=== PATIENT | male | born 1975 | race Caucasian/White ===

== ENCOUNTER 2019-03-31 09:12 | Outpatient (CLI) | payer OTHER ==
--- NOTE | 2019-03-31 11:15 | CT ---
CT FACIAL BONES: HISTORY: Patient with right eye pain. Evaluate sinuses. FINDINGS: Axial images were obtained with coronal and sagittal reconstructions. The frontal sinuses demonstrate mild left frontal sinus mucosal thickening. The right frontal sinus is well aerated. Minimal mid left ethmoid sinus mucosal thickening is seen. The rest of the ethmoid sinuses are well aerated. The sphenoid sinus is well aerated. Maxillary sinuses are well aerated. No other masses or lesions are seen. IMPRESSION: Minimal left frontal and ethmoid sinus mucosal thickening. POS: [facility]
== END 2019-03-31 09:13 | disposition home or self-care (01) ==
LOC: SCSCT 09:12
PROVIDERS: ATTEND Psychiatry & Neurology Neurology
DX: R51 Headache (principal)